=== PATIENT | male | born 1955 | race Two or more races ===

== ENCOUNTER 2021-11-05 18:56 | Emergency (ER) | payer MEDICAID, OTHER ==
[~2021-11-05] VITALS: Ht 165.1 cm; Wt 76.2 kg
[~2021-11-05 18:56] MED LIST: ALBUAER3 IN; ASPI-394 PO; ATOR10TA PO; CAR3125T PO; FURO1TAB31 PO; LISI2.5T47 PO; PANT40TA2 PO; POTA1TAB61 PO; TAM04C PO
[2021-11-05 19:03] VITALS: BP 151/94
[2021-11-05 22:30] LABS: Basophils # (auto) 0.1 10 ^3/uL (0-0.2); Basophils % (auto) 1.1 % (0.0-2.0); Eosinophils # (auto) 0.4 10 ^3/uL (0-0.8); Eosinophils % (auto) 4.7 % (0.0-7.0); Hematocrit 44.7 % (41.0-53.0); Hemoglobin 15.1 g/dL (13.5-17.5); Mean Corpuscular Hemoglobin 30.1 pg (28.0-32.0); Mean Corpuscular Hgb Conc. 33.8 g/dL (32.0-36.0); Mean Corpuscular Volume 89.1 fL (80.0-100.0); Monocytes # (auto) 0.6 10 ^3/uL (0-1.3); Monocytes % (auto) 7.4 % (0.0-12.0); Neutrophils # (auto) 5.6 10 ^3/uL (1.6-8.6); Neutrophils % (auto) 63.8 % (37.0-80.0); Nucleated Red Blood Cells % 0.1 %; Red Blood Cells 5.02 10^6/uL (4.5-5.90); Red Cell Distribution Width 13.7 % (11.8-14.3); White Blood Cell 8.7 10^3/uL (4.4-10.8)
[2021-11-05 22:32] LABS: Albumin 4.1 g/dL (3.4-5.0); Calcium 8.8 mg/dL (8.5-10.1); Potassium 4.3 mmol/L (3.5-5.1)
[2021-11-05 22:38] LABS: BUN/Creatinine Ratio 15.1; Bilirubin, Total 0.8 mg/dL (0.2-1.0); Total Protein 7.3 g/dL (6.4-8.2)
== END 2021-11-06 01:32 | disposition left against medical advice (07) ==
LOC: ER 19:00
DX: I10 Essential (primary) hypertension (principal); R06.02 Shortness of breath; Z53.21 Procedure and treatment not carried out due to patient leaving prior to being seen by health care provider
CPT/HCPCS: 36415; 71045; 80053; 83735; 83880; 84484; 85025

== ENCOUNTER 2024-04-03 19:20 | Emergency (ER) | payer MEDICAID ==
[~2024-04-03] VITALS: Ht 167.6 cm; Wt 72.1 kg
[~2024-04-03 19:20] MED LIST changes: +POTA-215 PO; -POTA1TAB61 PO; -TAM04C PO; +TAMS-35 PO
[2024-04-03 19:29] VITALS: BP 132/61; PULSE 76; RESP 20; TEMP 97.6
[2024-04-03 20:07] VITALS: O2SAT 96
[2024-04-03] MEDS: DexAMETHasone SOD PHOS 10MG/1ML VIAL INJ IM ONE (20:25)
[2024-04-08] MEDS ORDERED: ATOR-507 PO (15:45)
[2024-04-08] MEDS ORDERED: TAMS0.4C36 PO (15:45)
[2024-04-08] MEDS ORDERED: EPLE25TA4 PO (15:45)
[2024-04-08] MEDS ORDERED: CARV6.2551 PO (15:45)
[2024-04-08] MEDS ORDERED: SACU1TAB7 PO (15:45)
== END 2024-04-03 20:35 | disposition home or self-care (01) ==
LOC: ER 19:20
DX: R22.0 Localized swelling, mass and lump, head (principal); I11.0 Hypertensive heart disease with heart failure; I50.9 Heart failure, unspecified; E78.5 Hyperlipidemia, unspecified; K21.9 Gastro-esophageal reflux disease without esophagitis; F17.210 Nicotine dependence, cigarettes, uncomplicated; Z79.899 Other long term (current) drug therapy
CPT/HCPCS: 96372; 99283; J1100